=== PATIENT | female | born 2000 | race African-American/Black ===

== ENCOUNTER 2023-01-05 02:52 | Outpatient (CLI) | payer OTHER, SELFPAY | END 2023-01-05 02:53 | disposition home or self-care (01) | LOC: AMB 01-13 01:08 | PROVIDERS: Visit Provider Family Medicine | DX: R56.9 Unspecified convulsions (principal) | CPT/HCPCS: A0425; A0427 ==

== ENCOUNTER 2023-01-05 03:21 | Emergency (ER) | payer OTHER, SELFPAY ==
[2023-01-05] VITALS (7 sets, daily range): BP systolic 102–109; BP diastolic 53–66; PULSE 79–100; RESP 16; TEMP 36.6; O2SAT 97–100; BMI 21.4
--- NOTE | 2023-01-05 03:23 | ED.GENADULT ---
HPI - General Adult General Time Seen by Provider: Date Seen: 01/05/23 Chief complaint: Seizure Stated complaint: seizure Time Seen by Provider: 01/05/23 03:28 Source: patient, EMS, RN notes reviewed and old records reviewed Mode of arrival: EMS Limitations: no limitations History of Present Illness HPI narrative: 22-year-old female with history of seizures, presents tonight with seizure. Apparently roommate heard a thunk and patients on the floor with generalized seizure activity. Patient reports history of seizures all the last was in 2018. Takes Lamictal for this, no local prescriber but gets this from a doctor in [facility]. Has been on stable dose sets initially starting it. Admits to increased stress and poor sleep, denies missing doses of medication. Also was started on Accutane in August but no recent medication changes. Denies any pain. Related Data Home Medications Medication Instructions Recorded Confirmed lamotrigine 100 mg tablet 50 mg PO .AM seizures 01/05/23 01/05/23 (Lamictal) lamotrigine 100 mg tablet 100 mg PO DAILY 01/05/23 01/05/23 (Lamictal) Allergies Allergy/AdvReac Type Severity Reaction Status Date / Time No Known Drug Allergies Allergy Verified 01/05/23 03:25 [facility] Medical History (Updated 01/05/23 @ 04:16 by oTño Shay MD) Seizure ?R56.9 - Unspecified convulsions (ICD-10) Social History Smoking Status: Never smoker Do you use any of these nicotine containing products: None How often do you have a drink containing alcohol: never AUDIT-C Alcohol total score: 0 Non-prescribed substance use: denies use Exam Narrative: Exam Narrative: General: Well-developed and well-nourished, no acute distress Head: Atraumatic and normocephalic Eyes: Pupils are equal reactive, extraocular motions intact, conjunctiva clear ENT: External nose and ears are normal, posterior pharynx without erythema or exudate. 2 mm laceration on the right lower lip with no active bleeding, no tongue or other oral injury. Neck: No midline cervical tenderness, full spontaneous range of motion the neck, trachea midline, no adenopathy Heart: Regular rate and rhythm no murmurs or thrills Lungs: Clear to auscultation bilaterally without wheezes or crackles Abdomen: Soft, nontender, nondistended with active bowel sounds Musculoskeletal: No tenderness, deformity, or edema Neurologic: Awake, alert, and oriented x3, no gross focal neurologic deficits, cranial nerves intact as tested Psych: Mood and affect are appropriate Skin: No rashes Const: Vital Signs, click to edit/add: Vital Signs - 24 hr 01/05/23 03:25 01/05/23 04:19 01/05/23 04:20 Temperature 98 F Pulse Rate 100 96 Pulse Rate [Pulse Oximeter] 100 Respiratory Rate 16 Blood Pressure 102/53 L Blood Pressure [Ri ght Upper Arm] 109/66 Pulse Oximetry 100 97 100 Oxygen Delivery Me thod Room Air 01/05/23 04:30 Temperature Pulse Rate 88 Pulse Rate [Pulse Oximeter] Respiratory Rate Blood Pressure Blood Pressure [Ri ght Upper Arm] Pulse Oximetry 98 Oxygen Delivery Me thod Course Course ED Course: Patient seen and examined, prior records reviewed. Patient with history of seizure well controlled on Lamictal, presents today with seizure. She has a small lip laceration, otherwise no external signs of injury. Labs ordered and will obtain head CT as well due to facial trauma and history of fall. If labs are reassuring head CT is negative, despite discharged with outpatient follow-up with Neurology. Reevaluation(s) Time of Reevaluation #1: 04:06 Reevaluation #1: CT head independently interpreted by me negative for acute findings. Time of Reevaluation #2: 04:29 Reevaluation #2: Labs independently interpreted by me showing basic panel, alcohol level negative, test negative. Care was discussed with Dr. Charles, neurology who recommends increasing morning Lamictal to 75 mg and outpatient follow-up. Vital Signs Vital signs: Initial Vital Signs Temperature 98 F 01/05/23 03:25 Temperature Source Temporal Artery Scan 01/05/23 03:25 Pulse Rate 100 01/05/23 03:25 Respiratory Rate 16 01/05/23 03:25 Blood Pressure 109/66 01/05/23 03:25 Blood Pressure Mean 80 01/05/23 03:25 Pulse Oximetry 100 01/05/23 03:25 Oxygen Delivery Method Room Air 01/05/23 03:25 Vital Signs Temperature 98 F 01/05/23 03:25 Pulse Rate 100 01/05/23 03:25 Respiratory Rate 16 01/05/23 03:25 Blood Pressure 109/66 11/09/23 03:25 Pulse Oximetry 100 01/05/23 03:25 Oxygen Delivery Method Room Air 01/05/23 03:25 Temperature 98 F 01/05/23 03:25 Pulse Rate 88 01/05/23 04:30 Respiratory Rate 16 01/05/23 03:25 Blood Pressure 102/53 L 01/05/23 04:20 Pulse Oximetry 98 01/05/23 04:30 Oxygen Delivery Method Room Air 01/05/23 03:25 Medications Administered Medications: Generic Name Dose Route Start Last Admin Trade Name Loraine PRN Reason Stop Dose Admin Lamotrigine 75 mg 01/05/23 04:35 01/05/23 04:54 Lamotrigine 25 Mg Tablet PO 01/05/23 04:36 75 mg ONCE ONE Administration Medical Decision Making Lab Data Labs: Lab Results 01/05/23 Range/Units 03:45 Sodium 137 (135-149) mmol/L Potassium 3.7 (3.6-5.1) mmol/L Chloride 105 (96-114) mmol/L Carbon Dioxide 23 (20-32) mmol/L Anion Gap 9 (7-15) mEq/L BUN 12 (5-24) mg/dL Creatinine 0.7 (0.5-1.5) mg/dL Estimated Creat Clear 101.39 Estimated GFR 127 ml/min Glucose 94 (60-115) mg/dL Calcium 8.9 (8.4-10.6) mg/dL Magnesium 2.2 (1.5-2.6) mg/dL HCG, Qual Negative (Negative) Ethyl Alcohol < 0.01 L (0.01-0.03) % Discharge Plan Discharge Clinical Impression: Generalized seizure Patient Disposition: Home, Self-Care Condition: Stable Instructions: Recurrent Seizures in Adults (ED) Additional Instructions: Increase Lamictal to 75mg in the morning, 100mg at night Follow-up with neurology: [facility]- [phone] [facility]- [phone] Activity Level: Other Activity Detail: No swimming, working on ladders, bicycling, or driving until you have been without seizures for 3 months, or with is released from Neurology Discharge Diet: Regular Prescriptions: No Action lamotrigine [Lamictal] 100 mg tablet 50 mg PO .AM lamotrigine [Lamictal] 100 mg tablet 100 mg PO DAILY Follow Up/Referrals: Provider,Not a Local [Primary Care Provider] - Stand Alone Forms: Patient Conversation Media Info Instructions
--- NOTE | 2023-01-05 03:35 | CRLHL7_ITS ---
For Patients: As a result of the Century Cures Act, medical imaging exams and procedure reports are released immediately into your electronic medical record. You may view this report before your referring provider. If you have questions, please contact your health care provider. INDICATION: Fall. History of seizures. TECHNIQUE: CT head without contrast. COMPARISON: None available. FINDINGS: CSF spaces: Within normal limits for age. Brain parenchyma and extra-axial spaces: Incidental subcentimeter oval circumscribed mesial right temporal homogeneous CSF density finding (series 2; image 27) consistent with a dilated perivascular space at the base of the right basal ganglia. Differential diagnostic considerations include a neuroepithelial cyst. The location of the finding is less consistent with a choroid fissure cyst. The lin-white differentiation is preserved. No intracranial hemorrhage or hydrocephalus. No extra-axial fluid collection. Skull base and calvarium: The visualized paranasal sinuses and mastoid air cells demonstrate no acute or significant findings. The visualized orbits are grossly unremarkable. No skull fractures. IMPRESSION: No suspicious intracranial mass, hemorrhage or acute ischemia. Incidental simple cystic finding consistent with a dilated perivascular space at the base of the right basal ganglia. Differential diagnostic considerations discussed above. In this patient with a history of seizures, consider a nonemergent MRI for further evaluation. Please note that all CT scans at this facility use dose modulation, iterative reconstruction, and/or weight-based dosing when appropriate to reduce radiation dose to as low as reasonably achievable. Dictated by Mao Borden MD @ 01/05/2023 4:25:28 AM (Electronically Signed)
[2023-01-05 04:16] LABS: Chloride* 105 mmol/L (96-114); Potassium* 3.7 mmol/L (3.6-5.1); Sodium* 137 mmol/L (135-149)
[2023-01-05 04:18] LABS: Anion Gap 9 mEq/L (7-15); Carbon Dioxide* 23 mmol/L (20-32); Creatinine* 0.7 mg/dL (0.5-1.5); Est. Creatinine Clearance* 101.39; Estimated Glomerular Filt Rate 127 ml/min
[2023-01-05 04:19] LABS: Blood Urea Nitrogen* 12 mg/dL (5-24); Calcium* 8.9 mg/dL (8.4-10.6); Glucose* 94 mg/dL (60-115); Magnesium* 2.2 mg/dL (1.5-2.6)
[2023-01-05 04:20] LABS: Ethanol* < 0.01 % (0.01-0.03); HCG Qualitative Serum* Negative (Negative)
[2023-01-05] MEDS: lamoTRIgine 25 MG TABLET 75 MG PO (04:54)
[2023-01-05 05:33] LABS: Amphetamine Screen Urine Negative (Negative); Barbiturate Screen Urine Negative (Negative); Benzodiazepines Screen Urine Negative (Negative); Cannabinoid Screen Urine Negative (Negative); Cocaine Screen Urine Negative (Negative); Methadone Screen Urine Negative (Negative); Methamphetamines Screen Urine Negative (Negative); Opiate Screen Urine Negative (Negative); Oxycodone Screen Urine Negative (Negative); Phencyclidine Screen Urine Negative (Negative); Tricyclic Antidepressant Urine Negative (Negative)
== END 2023-01-05 05:50 | disposition home or self-care (01) ==
PROVIDERS: Emergency Provider Family Medicine
DX: G40.89 Other seizures (principal); S01.511A Laceration without foreign body of lip, initial encounter
CPT/HCPCS: 36415; 70450; 80048; 80306; 82077; 83735; 84703; 99284; 99285; A9270